=== PATIENT | female | born 1965 | race Caucasian/White ===

== ENCOUNTER 2019-05-30 15:41 | Inpatient (IN) | payer OTHER, MEDICARE ==
[~2019-05-30] VITALS: Ht 172.7 cm; Wt 85.9 kg
[2019-05-30] MEDS: LEVOTHYROXINE DOSE MC SCH (00:44)
--- NOTE | 2019-05-30 15:56 | NUR ---
THIS IS A 53 YEAR OLD FEMALE WHO CAME IN BY AMBULANCE DUE TO "SOB" PT CRYING, STATING, "I DO NOT WANT TO BE HERE, DONT TOUCH ME". JUMPED OFF GURNEY AND HIDE IN CORNER. PT STATES, "GIVE US SOME TIME". AFTER [address] GUILLEN IN ROOM. PT CONTINOUS TO CRY AND STATES SHE WANTS TO LEAVE. EXPLAINED THAT THIS RN NEEDS TO TAKE VS TO ASSESS. PT REFUSED. EXPLAINED TO SPOUSE THAT THIS RN. PER SPOUSE, HE STATES, "GIVE ME 5 MIN". [address] TO DR[address] GUILLEN
[2019-05-30] MEDS ORDERED: PLEASE ENTER ALLERGIES MC SCH (16:00)
[2019-05-30] MEDS ORDERED: LORazepam 1MG TABLET PO ONE (16:00)
[2019-05-30] MEDS ORDERED: SODIUM CHLORIDE FLUSH 10ML SYR IVF ONE (16:00)
--- NOTE | 2019-05-30 16:04 | NUR ---
PT REFUSED THIS RN TO "TOUCH" HER, STATES EVERYONE ELSE CAN "BUT YOU". REPORT TO SUSY PRIMARY RN
[2019-05-30] MEDS ORDERED: ALBUTEROL/IPRATROPIUM 2.5MG/0.5MG, 3 ML ONE (16:29)
--- NOTE | 2019-05-30 16:32 | NUR ---
PT REFUSING IV. PT DEMANDING "IV THERAPY W LIDOCAINE". RN DISCUSSED THAT CERTAIN MEDICATIONS REQUIRE IV. PT UNDERSTANDING OF NOT HAVING IV. PT INSISTED TO AMBULATE TO BATHROOM W . WALKING STEADY TO BATHROOM
[2019-05-30] MEDS: ALBUTEROL/IPRATROPIUM 2.5MG/0.5MG, 3 ML NPPB SCH (16:42)
--- NOTE | 2019-05-30 16:42 | NUR ---
REPORTS THAT PT HYPERVENTILATED TO BATHROOM. SPOUSE DENIES ANY INJURY. MD NOTIFIED OF EVENT. PT REFUSED TO USE BED SIDE COMMODE WHEN OFFERED.
[2019-05-30] MEDS ORDERED: LORazepam 1MG TABLET ONE (16:59)
--- NOTE | 2019-05-30 17:14 | NUR ---
PT APPEARS VERY CALM W AT BEDSIDE AFTER MEDICATION, ATIVAN. VS STABLE. CALL LIGHT IN REACH. DENIES ANY PAIN.
[2019-05-30] MEDS ORDERED: NITROGLYCERIN SINGLE TAB 0.4 MG SL ONE (17:32)
[2019-05-30] MEDS ORDERED: ASPIRIN 81 MG TABLET CHEW ONE (17:32)
[2019-05-30] MEDS ORDERED: L.E.T SOLUTION TP ONE ×2 (17:32→18:00)
[2019-05-30] MEDS ORDERED: MONT10TA9 PO (17:50)
[2019-05-30] MEDS ORDERED: OXYC10TA6 PO (17:50)
[2019-05-30] MEDS ORDERED: PREG200C PO (17:50)
[2019-05-30] MEDS ORDERED: CELE200C PO (17:50)
[2019-05-30] MEDS ORDERED: TIZA4CAP PO (17:50)
[2019-05-30] MEDS ORDERED: CLON1TAB11 PO (17:50)
[2019-05-30] MEDS ORDERED: TRINTELLIX PO (17:50)
[2019-05-30] MEDS ORDERED: LEVO25TA4 PO (17:50)
[2019-05-30] MEDS ORDERED: CYCL-259 PO (17:50)
[2019-05-30] MEDS ORDERED: OXYcodone/APAP 5/325MG TABLET ONE (17:59)
[2019-05-30] MEDS ORDERED: ASPIRIN 81 MG TABLET CHEW PO ONE (18:00)
[2019-05-30] MEDS ORDERED: OXYcodone/APAP 5/325MG TABLET PO ONE (18:00)
[2019-05-30] MEDS ORDERED: NITROGLYCERIN SINGLE TAB 0.4 MG SL PRN (18:00)
[2019-05-30 18:24] LABS: BASOPHILS # (AUTO) 0.02 x10^3/uL (0-0.1); BASOPHILS % (AUTO) 0 % (0-1); EOSINOPHILS # (AUTO) 0.03 x10^3/uL (0-0.4); EOSINOPHILS % (AUTO) 0 % (1-7); LYMPHOCYTES # (AUTO) 1.71 x10^3/uL (1-3.4); LYMPHOCYTES % (AUTO) 23 % (22-44); MD NO; MEAN CORPUSCULAR HEMOGLOBIN 29.5 pg (27.0-34.8); MEAN CORPUSCULAR HGB CONC 33.2 g/dL (32.4-35.8); MEAN CORPUSCULAR VOLUME 88.8 fL (80-100); MEAN PLATELET VOLUME 8.6 fL (7.4-10.4); MONOCYTES # (AUTO) 0.36 x10^3/uL (0.2-0.8); MONOCYTES % (AUTO) 5 % (2-9); NEUTROPHILS # (AUTO) 5.29 x10^3/uL (1.8-6.8); NEUTROPHILS % (AUTO) 71 % (42-75); PLATELET COUNT 204 x10^3/uL (130-400); RED BLOOD COUNT 4.92 x10^6/uL (3.82-5.3); RED CELL DISTRIBUTION WIDTH 13.3 % (9.6-15.2)
[2019-05-30 18:33] LABS: ALBUMIN 4.1 g/dL (3.4-5.0); ANION GAP 6 mmol/L (5-15); CALCIUM 9.7 mg/dL (8.5-10.1); CHLORIDE 109 mmol/L (98-107); CREATININE 0.93 mg/dL (0.55-1.02)
[2019-05-30 18:37] LABS: TROPONIN I < 0.015 ng/mL (0.000-0.045)
[2019-05-30] MEDS ORDERED: SODIUM CHLORIDE FLUSH 10ML SYR IVF PRN (19:00)
[2019-05-30 20:13] VITALS: BP 128/85
[2019-05-30] MEDS ORDERED: ACETAMINOPHEN 650 MG/20.3 ML UDC PO PRN (21:00)
[2019-05-30] MEDS ORDERED: DOCUSATE 100 MG CAPSULE PO PRN (21:00)
[2019-05-30] MEDS ORDERED: MAALOX/HYOSCYAMINE/LIDOCAINE 45 ML BTL PO ONE (21:00)
[2019-05-30] MEDS ORDERED: ATORVASTATIN 40 MG TABLET PO SCH (21:00)
[2019-05-30] MEDS ORDERED: ONDANSETRON 2MG/ML, 2ML IVPush PRN (21:00)
[2019-05-30] MEDS: PREGABALIN 200 MG CAPSULE PO SCH (21:00)
[2019-05-30] MEDS: CYCLOBENZAPRINE 10 MG TABLET PO SCH (21:54)
[2019-05-30] MEDS: OXYcodone IR 5MG TABLET PO SCH (21:55)
[2019-05-30] MEDS: TIZANIDINE 4MG TABLET PO SCH (21:56)
[2019-05-30] MEDS ORDERED: BECL10.62 PO (22:04)
[2019-05-30] MEDS ORDERED: ALBU1.25 NEB (22:04)
[2019-05-30 22:18] VITALS: BP 142/93
[2019-05-30 22:40] VITALS: BP 132/83
[2019-05-30] MEDS ORDERED: OMNIPAQUE 350 MG/ML, 100ML BOTTLE ONE (23:43)
[2019-05-31] VITALS (9 sets, daily range): BP systolic 95–120; BP diastolic 60–81
[2019-05-31] MEDS ORDERED: LORazepam 1MG TABLET PO ONE
[2019-05-31] MEDS ORDERED: ENOXAPARIN 40 MG/0.4 ML SQ SCH (01:00)
[2019-05-31 01:09] LABS: TROPONIN I < 0.015 ng/mL (0.000-0.045)
[2019-05-31 01:42] LABS: AMPHETAMINE SCREEN, URINE Negative (Negative); BARBITURATE SCREEN, URINE Negative (Negative); BENZODIAZEPINE SCREEN, URINE Negative (Negative); CANNABINOID SCREEN, URINE Negative (Negative); COCAINE SCREEN, URINE Negative (Negative); METHADONE SCREEN, URINE Negative (Negative); OPIATE SCREEN, URINE Negative (Negative)
[2019-05-31] MEDS: OXYcodone IR 5MG TABLET PO SCH ×3 (04:54→15:58)
[2019-05-31] MEDS: LEVOTHYROXINE DOSE MC SCH ×2 (05:00→13:00)
[2019-05-31 05:40] LABS: ANION GAP 7 mmol/L (5-15); CALCIUM 8.5 mg/dL (8.5-10.1); CHLORIDE 109 mmol/L (98-107); CHOLESTEROL, TOTAL 194 mg/dL (140-239)
[2019-05-31 05:43] LABS: CHOL/HDL RATIO 2.9; HDL CHOL % 35 % (28-40); HDL CHOLESTEROL (DIRECT) 67 mg/dL (40-60); LDL CHOLESTEROL,CALCULATED 110 mg/dL (54-169); LDL/HDL RATIO 1.6 (0.5-3.0); MEAN CORPUSCULAR HGB CONC 33.7 g/dL (32.4-35.8); MEAN PLATELET VOLUME 8.4 fL (7.4-10.4); PLATELET COUNT 213 x10^3/uL (130-400); RED BLOOD COUNT 4.53 x10^6/uL (3.82-5.3); RED CELL DISTRIBUTION WIDTH 13.7 % (9.6-15.2); TRIGLYCERIDES 85 mg/dL (50-200); TROPONIN I < 0.015 ng/mL (0.000-0.045); VLDL CHOLESTEROL 17 mg/dL (0-25)
[2019-05-31 05:49] LABS: THYROID STIMULATING HORMONE 0.723 mIU/L (0.358-3.740)
[2019-05-31 06:18] LABS: BASOPHILS # (AUTO) 0.03 x10^3/uL (0-0.1); BASOPHILS % (AUTO) 1 % (0-1); EOSINOPHILS % (AUTO) 2 % (1-7); LYMPHOCYTES # (AUTO) 2.98 x10^3/uL (1-3.4); LYMPHOCYTES % (AUTO) 50 % (22-44); MD SCAN; MONOCYTES # (AUTO) 0.34 x10^3/uL (0.2-0.8); MONOCYTES % (AUTO) 6 % (2-9); NEUTROPHILS # (AUTO) 2.49 x10^3/uL (1.8-6.8); NEUTROPHILS % (AUTO) 42 % (42-75)
[2019-05-31] MEDS: PREGABALIN 200 MG CAPSULE PO SCH ×2 (08:32→15:58)
[2019-05-31] MEDS: CYCLOBENZAPRINE 10 MG TABLET PO SCH ×2 (08:34→15:58)
[2019-05-31] MEDS: TIZANIDINE 4MG TABLET PO SCH (08:35)
[2019-05-31] MEDS ORDERED: MONTELUKAST 10 MG TABLET PO SCH (09:00)
[2019-05-31] MEDS ORDERED: ASPIRIN 81 MG TABLET EC PO SCH (09:00)
[2019-05-31] MEDS ORDERED: LEVOTHYROXINE 25 MCG TABLET PO SCH (09:00)
[2019-05-31] MEDS ORDERED: TRINTELLIX 20 MG HOMEMEDPO SCH (09:00)
[2019-05-31] MEDS ORDERED: REGADENOSON 0.4 MG/5 ML SYRINGE ONE (09:18)
[2019-05-31] MEDS ORDERED: FLUT12HF2 INH (13:05)
[2019-05-31] MEDS ORDERED: ESTR1PAT25 TD (13:05)
[2019-05-31] MEDS ORDERED: LEVO100T PO (13:05)
[2019-05-31] MEDS ORDERED: LEVOTHYROXINE 100 MCG TABLET PO SCH (13:09)
[2019-05-31] MEDS ORDERED: MAALOX/HYOSCYAMINE/LIDOCAINE 45 ML BTL PO PRN (15:00)
[2019-05-31] MEDS ORDERED: CALCIUM CARBONATE 500 MG TAB.CHEW PO PRN (15:00)
[2019-05-31] MEDS ORDERED: OMNIPAQUE 350 MG/ML, 100ML BOTTLE ONE (17:54)
[2019-06-01] MEDS ORDERED: PANTOPROZOLE 40MG TABLET PO SCH (21:00)
== END 2019-05-31 20:26 | disposition left against medical advice (07) | DRG 392 ==
LOC: ED 17:55 → EDIP 18:58 → 5SO 20:18
PROVIDERS: ADMIT Internal Medicine; ATTEND Internal Medicine
DX: K21.9 Gastro-esophageal reflux disease without esophagitis (principal); F11.20 Opioid dependence, uncomplicated; Z53.21 Procedure and treatment not carried out due to patient leaving prior to being seen by health care provider; E03.9 Hypothyroidism, unspecified; I25.10 Atherosclerotic heart disease of native coronary artery without angina pectoris; E78.00 Pure hypercholesterolemia, unspecified; G47.33 Obstructive sleep apnea (adult) (pediatric); E78.5 Hyperlipidemia, unspecified; F32.9 Major depressive disorder, single episode, unspecified; F41.9 Anxiety disorder, unspecified; G61.9 Inflammatory polyneuropathy, unspecified; G89.29 Other chronic pain; J45.909 Unspecified asthma, uncomplicated; M79.7 Fibromyalgia; Z77.098 Contact with and (suspected) exposure to other hazardous, chiefly nonmedicinal, chemicals; Z82.49 Family history of ischemic heart disease and other diseases of the circulatory system; Z88.1 Allergy status to other antibiotic agents; Z90.710 Acquired absence of both cervix and uterus; Z90.721 Acquired absence of ovaries, unilateral; Z98.82 Breast implant status; Z90.49 Acquired absence of other specified parts of digestive tract; Z98.1 Arthrodesis status; Z88.8 Allergy status to other drugs, medicaments and biological substances
CPT/HCPCS: 36415; 99285; J7620; 70450; 70496; 70498; 70551; 71045; 71275; 78452; 80048; 80061; 80307; 82040; 82962; 83735; 83880; 84443; 84484; 85025; 85379; 93005; 93017; 93306; 94640; 95816; G0378; J2785; Q9967; A9502; C9898